=== PATIENT | male | born 1965 | race Caucasian/White ===

== ENCOUNTER 2019-12-15 07:36 | Day surgery (SDC) | payer OTHER, BC ==
[2019-12-05 17:59] VITALS: BMI 36.9
[2019-12-15] MEDS ORDERED: MIDAZOLAM HCL 2 MG/2 ML SINGLE DOSE VIAL ONE (12:11)
[2019-12-15] MEDS ORDERED: DEXAMETHASONE SOD PHOSPHATE/PF 10 MG/ML SDV ONE (12:11)
[2019-12-15] MEDS ORDERED: ROPIVACAINE HCL 0.5% 30ML VIAL ONE (12:11)
[2019-12-15] MEDS ORDERED: SUCCINYLCHOLINE CHLORIDE 200 MG/10 ML SYRINGE ONE (12:56)
[2019-12-15] MEDS ORDERED: PROPOFOL 20 ML ONE ×2 (12:56)
[2019-12-15] MEDS ORDERED: ceFAZolin SODIUM 1 GM VIAL ONE (13:05)
[2019-12-15] MEDS ORDERED: ONDANSETRON 4 MG/2 ML VIAL ONE (13:05)
[2019-12-15] MEDS ORDERED: DEXAMETHASONE SOD PHOSPHATE 4 MG/1 ML VIAL ONE (13:05)
[2019-12-15] MEDS ORDERED: ePHEDrine SULFATE 50 MG/1 ML AMPULE ONE (13:19)
[2019-12-15] MEDS ORDERED: PHENYLEPHRINE HCL 10 MG/1 ML SINGLE DOSE VIAL ONE (13:30)
[2019-12-15] MEDS ORDERED: TRANEXAMIC ACID 1000 MG/10 ML VIAL ONE (14:02)
[2019-12-15] MEDS ORDERED: BENZOIN/ALOE VERA/STORAX/TOLU 58 ML BOTTLE ONE (14:07)
[2019-12-15] MEDS ORDERED: PROMETHAZINE HCL 25 MG/1 ML VIAL IVPUSH PRN (15:03)
[2019-12-15] MEDS ORDERED: ONDANSETRON 4 MG/2 ML VIAL IVPUSH PRN (15:03)
[2019-12-15] MEDS ORDERED: oxyCODONE HCL 5 MG TABLET PO PRN ×2 (15:03)
--- NOTE | 2019-12-15 15:08 | PN ---
Progress Note (short form) - Note Progress Note: 54M s/p LEFT shoulder open Quyen procedure, & Neer Decompression POD #0. -Pain control: Vicodin, Duexis ordered to pharmacy. -Incentive spirometry. -No chemical DVT PPx. -LUE sling. -No LEFT shoulder ROM. -Daily LEFT elbow, wrist & hand ROM. -Keep dressing clean & dry. -f/u in [facility] [place] [facility] in 7-10 days; call for appointment; . Marvin Ortiz MD (Orthopaedic Surgery).
--- NOTE | 2019-12-15 15:17 | OP ---
Operative Note - Note: Operative Date: 12/15/19 Pre-Operative Diagnosis: Impingement syndrome left shoulder Operation: Left shoulder open. Quyen procedure. Neer decompression Post-Operative Diagnosis: Same as Pre-op Surgeon: Marvin Ortiz [employer]: Kavin Ortiz Anesthesiologist/BUSINESS SERVICES CLERK: Thanh Skelton Anesthesia: General Estimated Blood Loss (mls): 25 Fluid Volume Replaced (mls): 900 (Crystalloid) Operative Report Dictated: Yes
[2019-12-15] MEDS ORDERED: oxyCODONE HCL 5 MG TABLET ONE (17:05)
[2019-12-15 17:20] VITALS: PULSE 98
[2019-12-15 17:42] VITALS: BP 110/76; TEMP 97.8
[2019-12-15] MEDS ORDERED: ROSUVASTATIN CA 10 MG TABLET (FP) PO SCH (22:00)
[2019-12-15] MEDS ORDERED: TAMSULOSIN HCL 0.4 MG CAP PO SCH (22:00)
[2019-12-15] MEDS ORDERED: PATIENT'S OWN MEDICATION (NON-FORMULARY) (Diazepam [Diazepam] 10 MG) PO SCH (22:00)
[2019-12-15] MEDS ORDERED: CYCLOBENZAPRINE HCL 10 MG TABLET (FP) PO SCH (22:00)
[2019-12-15] MEDS ORDERED: diazePAM 5 MG TABLET PO SCH (22:00)
--- NOTE | 2019-12-16 07:06 | OP ---
DATE OF OPERATION: DATE OF DICTATION: 12/15/2019 SURGEON: Marvin Ortiz MD CONTROL PANEL BUILDER: Kavin Ortiz MD PREOPERATIVE DIAGNOSIS: Rotator cuff impingement syndrome with chronic rotator cuff tendinosis, failed conservative treatment. POSTOPERATIVE DIAGNOSIS: Rotator cuff impingement syndrome with chronic rotator cuff tendinosis, failed conservative treatment. OPERATION PERFORMED: 1. Excision arthroplasty clavicle (Quyen). (53250) 2. Neer decompression: Acromioplasty & transection of coracoacrominal ligament. (57332) ANESTHESIA: General with scalene block. ANTIBIOTICS GIVEN: 2 g Ancef, 1 g vancomycin preop. OPERATION DETAILS: Patient was correctly identified, brought into the operating room. Left upper extremity prepped, draped in a routine manner with Betadine scrub solution, wiped off with alcohol, DuraPrep applied. A free drape applied. The shoulder and axilla sealed completely as a separate field. The patient was placed in a beach chair position. The incision was made from the tip of the acromion to the tip of the coracoid. The dissection was taken through the skin and subcutaneous tissue. The deltoid identified. A Hohmann retractor was placed and a plane developed between the subcutaneous fat and the clavicle. Just placed behind the clavicle distally as was an anterior Hohmann retractor placed also to protect the distal 1 cm of the clavicle, that is, the undersurface. A beveled incision was made with an oscillating saw to incise the entire lateral 1 cm of clavicle. The soft tissues were dissected off the bone. 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 Once this had been performed, the deltoid was opened about 1 cm in lines of the fibers of the deltoid. The ac coracoacrominal ligament was dissected off the deltoid using a peanut. [employer] retractors were utilized to hold the muscle away from the coracoacromial ligament. This was transected using a 15 blade knife the entire ligament being transected, and this extended all the way up into the shoulder. Once this had been performed, with fingertip palpation, the undersurface of the acromion and the subacromial space was explored. This was completely freed of adhesions. A large acromioplasty was performed. A Hohmann retractor was placed in the undersurface of the acromion leaving the humeral head down. A rake retractor was used to hold the soft tissue of the remaining acromioclavicular joint out of harm's way. This gave the surface of the joint readily visible. An oscillating saw was utilized to incise almost half of this extending all the way to the back of the acromion, thus performing a liberal acromioplasty. The anterior tip of the acromion was also reached by placing a Hohmann under the deltoid getting to this area, which was difficult, but at the end this was resected appropriately to remove the sharp edge of bone that was digging into the acromioclavicular joint particularly on extension. This was readily palpated manually. The wounds were thoroughly lavaged. The bursa of the supraspinatus was identified. It was open dissected off the soft tissue elements. The rotator cuff was inspected. No tears were noted. The wounds were thoroughly lavaged. The closure was as follows: Deltoid to remaining acromioclavicular joint tissues with No. 1 Vicryl, Seroquel 1 Vicryl, skin 3-0 Monocryl with Steri-Strips. No drains. The sling was applied. MD TOMMY Maki/[id number] MTDD
[2019-12-16] MEDS ORDERED: PATIENT'S OWN MEDICATION (NON-FORMULARY) (Losartan Potassium [Losartan Potassium] 100 MG) PO SCH (10:00)
[2019-12-16] MEDS ORDERED: LOSARTAN POTASSIUM 50 MG TABLET (FP) PO SCH (10:00)
[2019-12-16] MEDS ORDERED: PANTOPRAZOLE 20 MG TABLET PO SCH (10:00)
[2019-12-16] MEDS ORDERED: PATIENT'S OWN MEDICATION (NON-FORMULARY) (Omeprazole Magnesium [Prilosec Otc] 20 MG) PO SCH (10:00)
[2019-12-16] MEDS ORDERED: FLUTICASONE PROP 0.05% 16 GM NASAL SPRAY NS SCH (10:00)
[2019-12-16] MEDS ORDERED: amLODIPine BESYLATE 5 MG TABLET (FP) PO SCH (10:00)
[2019-12-16] MEDS ORDERED: ATENOLOL 25 MG TABLET (FP) PO SCH (10:00)
== END 2019-12-15 17:43 | disposition home or self-care (01) ==
LOC: FASU 07:36
PROVIDERS: ATTEND Orthopaedic Surgery Orthopaedic Surgery of the Spine
PROC: 0MN20ZZ Release Left Shoulder Bursa and Ligament, Open Approach (ICD-10-PCS; 2019-12-15)
PROC: 0RBH0ZZ Excision of Left Acromioclavicular Joint, Open Approach (ICD-10-PCS; 2019-12-15)
PROC: 0PBB0ZZ Excision of Left Clavicle, Open Approach (ICD-10-PCS; principal; 2019-12-15 13:33)
DX: M75.42 Impingement syndrome of left shoulder (principal); M75.102 Unspecified rotator cuff tear or rupture of left shoulder, not specified as traumatic
CPT/HCPCS: 94760

== ENCOUNTER 2020-05-30 22:31 | Emergency (ER) | payer OTHER, BC ==
--- NOTE | 2020-05-30 22:47 | PDOC ---
History of Present Illness - General Chief Complaint: Injury Stated Complaint: LOWER BACK/INJURY Time Seen by Provider: 05/30/20 22:46 History Source: Patient Exam Limitations: No Limitations Past History - Travel History Traveled outside of the country in the last 30 days: No Close contact w/someone who was outside of country & ill: No - Medical History Allergies/Adverse Reactions: Allergies Allergy/AdvReac Type Severity Reaction Status Date / Time latex Allergy Rash Verified 12/15/19 08:09 povidone-iodine Allergy Itching Verified 12/15/19 08:09 [From Betadine] soap [From Betadine] Allergy Itching Verified 12/15/19 08:09 seafood Allergy Rash Uncoded 12/15/19 08:09 Home Medications: Ambulatory Orders Amlodipine Besylate 5 mg PO DAILY 12/05/19 Atenolol [Tenormin] 25 mg PO DAILY 12/05/19 Cyclobenzaprine HCl 10 mg PO HS 12/05/19 Diazepam 10 mg PO HS 12/05/19 Fluticasone Prop 0.05% Nasal [Flonase -] 1 - 2 spray NS DAILY 12/05/19 Losartan Potassium 100 mg PO DAILY 12/05/19 Omeprazole Magnesium [Prilosec Otc] 20 mg PO DAILY 12/05/19 Rosuvastatin [Crestor -] 10 mg PO DAILY 12/05/19 Tamsulosin HCl [Flomax] 0.8 mg PO HS 12/05/19 traMADol HCL [Ultram -] 50 mg PO BID 12/05/19 Cyclobenzaprine HCl [Flexeril -] 10 mg PO HS #10 tablet 05/30/20 Methylprednisolone [Medrol Dose Jase] 4 mg PO ASDIR #21 tablet 05/30/20 Anemia: No Asthma: No Cancer: No Cardiac Disorders: No CVA: No COPD: No CHF: No Dementia: No Diabetes: No GI Disorders: Yes (acid reflux) Disorders: Yes (enlarged prostate) HTN: Yes Hypercholesterolemia: Yes Liver Disease: Yes (FATTY LIVER) Seizures: No Thyroid Disease: No - Surgical History Abdominal Surgery: No Appendectomy: No Cardiac Surgery: No Cholecystectomy: No Lung Surgery: No Neurologic Surgery: Yes (spinal fusion C-3-4-5, L1-L5) Orthopedic Surgery: No - Psycho-Social/Smoking History Smoking History: Never smoked Have you smoked in the past 12 months: No - Substance Abuse Hx (Audit-C & DAST Scrn) How often the patient has a drink containing alcohol: Never Score: In Men: 4 or > Positive; In Women: 3 or > Positive: 0 Screen Result (Pos requires Nsg. Audit-10AR): Negative In the last yr the pt used illegal drug/Rx for NonMed reason: No Score: Yes response is considered Positive: 0 Screen Result (Positive result requires Nsg. DAST-10): Negative Review of Systems - Review of Systems Able to Perform ROS?: Yes Comments:: 05/30/20 23:48 CONSTITUTIONAL: Absent: fever, chills, diaphoresis, generalized weakness, malaise, loss of appetite GASTROINTESTINAL: Absent: abdominal pain, abdominal distension, nausea, vomiting, diarrhea, constipation, melena, hematochezia GENITOURINARY: Absent: dysuria, frequency, urgency, hesitancy, hematuria, flank pain, genital pain MUSCULOSKELETAL: Present: Neck pain, low back pain Absent: arthralgia, joint swelling SKIN: Absent: rash, itching, pallor NEUROLOGIC: Absent: headache, focal weakness or paresthesias, dizziness, unsteady gait, seizure, mental status changes, bladder or bowel incontinence PSYCHIATRIC: Absent: anxiety, depression, suicidal or homicidal ideation, hallucinations. Is the patient limited [place] proficient: No *Physical Exam - Vital Signs Last Vital Signs Temp Pulse Resp BP Pulse Ox 98.6 F 98 H 19 119/96 97 05/30/20 22:42 05/30/20 22:42 05/30/20 22:42 05/30/20 22:42 05/30/20 22:42 - Physical Exam 05/30/20 23:48 GENERAL: Well developed, well nourished. Awake and alert. No acute distress. NECK: Supple. Full ROM. No lymphadenopathy. MUSCULOSKELETAL Tenderness to palpation of the mid low back across the midline, bilateral paraspinous muscles L1-L5. Tenderness palpation of the fourth through C7 with tenderness palpation of the paraspinous muscles as well. Negative straight leg raise test bilaterally. Normal range of motion at all joints. No bony def ormities or tenderness. No CVA tenderness. EXTREMITIES: No cyanosis. No clubbing. No edema. No calf tenderness. SKIN: Warm and dry. Normal capillary refill. No rashes. No jaundice. NEUROLOGICAL: Alert, awake, appropriate. Cranial nerves 2-12 intact. No deficits to light touch and temperature in face, upper extremities and lower extremities. No motor deficits in the in face, upper extremities and lower extremities. Normoreflexic in the upper and lower extremities. Normal speech. Toes are down-going bilaterally. Gait is normal without ataxia. PSYCHIATRIC: Cooperative. Good eye contact. Appropriate mood and affect. Medical Decision Making - Medical Decision Making 05/30/20 23:50 Patient is a 54-year-old male with past medical history of spinal fusion, cervical fusion, presents to the ER today for neck and back pain status post fall just prior to arrival. He states that he was walking his dog when a neighbor's dog ran past him and knocked him over. He states he landed flat on his back. He states that after falling he was unable to get up without assistance. He states that he feels very sore in the back and that his hardware is "out of place "he has not taken any medication for pain. Denies LOC, lightheadedness numbness and tingling and weakness to the lower extremities and upper extremities, saddle anesthesia and bladder bowel incontinence. A/P: Low back pain -Pt with TTP of the B/L paraspinous muscles, L1-L5, with palpable knot consistent with muscle spasm. (+) midline tenderness, (-) straight leg raise testing -Nofever. No saddle anesthesia or bladder/bowel incontinence. No CVA tenderness. -Pt is neurologically intact on exam with no focal findings. -X-rays of the back and neck show hardware intact, no acute fractures identified. Straightening of the paraspinous muscles. -Toradol , Tylenol, Flexeril, lidocaine patch given with relief of symptoms -DC home. Ortho follow up given for if symptoms do not resolve. -I discussed the physical exam findings, ancillary test results and final diagnoses with the patient. I answered all of the patient's questions. The patient was satisfied with the care received and felt comfortable with the discharge plan and treatment plan. The Patient agrees to follow up with the primary care physician/specialist within 24-72 hours. Return precautions were given. Discharge - Discharge Information Problems reviewed: Yes Clinical Impression/Diagnosis: Low back pain Qualifiers: Chronicity: acute Back pain laterality: bilateral Sciatica presence: with sciatica Sciatica laterality: sciatica of left side Qualified Code(s): M54.42 - Lumbago with sciatica, left side Fall Qualifiers: Encounter type: initial encounter Qualified Code(s): W19.XXXA - Unspecified fall, initial encounter Condition: Stable Disposition: HOME - Admission No - Additional Discharge Information Prescriptions: Cyclobenzaprine HCl [Flexeril -] 10 mg PO HS #10 tablet Methylprednisolone [Medrol Dose Jase] 4 mg PO ASDIR #21 tablet - Follow up/Referral - Patient Discharge Instructions Patient Printed Discharge Instructions: DI for Low Back Pain Additional Instructions: You have low back pain due to a muscle spasm after falling. Please take the medrol dose pack as directed. This will help with the inflammation and leg pain. You were also prescribed Flexeril. Please take this medication every 8 hours for the first day. Then take the medication before you go to bed. Do not drive after taking this medication as it may make you sleepy. You may use warm compresses on your back to help with her symptoms. Please follow-up with your primary care doctor. If your symptoms do not resolve in 3-5 days, follow-up with your spine surgeon for further management of your symptoms. Return to the emergency department if you have worsening back pain, bladder or bowel incontinence, numbness and tingling in her legs, changes in the way you walk, or any new or worsening symptoms. - Post Discharge Activity
[2020-05-30 22:50] VITALS: BP 119/96; PULSE 98; TEMP 98.6; BMI 36.9
--- NOTE | 2020-05-30 22:53 | PDOC ---
History of Present Illness - General Chief Complaint: Injury Stated Complaint: LOWER BACK/INJURY Past History - Medical History Allergies/Adverse Reactions: Allergies Allergy/AdvReac Type Severity Reaction Status Date / Time latex Allergy Rash Verified 12/15/19 08:09 povidone-iodine Allergy Itching Verified 12/15/19 08:09 [From Betadine] soap [From Betadine] Allergy Itching Verified 12/15/19 08:09 seafood Allergy Rash Uncoded 12/15/19 08:09 Home Medications: Ambulatory Orders Amlodipine Besylate 5 mg PO DAILY 12/05/19 Atenolol [Tenormin] 25 mg PO DAILY 12/05/19 Cyclobenzaprine HCl 10 mg PO HS 12/05/19 Diazepam 10 mg PO HS 12/05/19 Fluticasone Prop 0.05% Nasal [Flonase -] 1 - 2 spray NS DAILY 12/05/19 Losartan Potassium 100 mg PO DAILY 12/05/19 Omeprazole Magnesium [Prilosec Otc] 20 mg PO DAILY 12/05/19 Rosuvastatin [Crestor -] 10 mg PO DAILY 12/05/19 Tamsulosin HCl [Flomax] 0.8 mg PO HS 12/05/19 traMADol HCL [Ultram -] 50 mg PO BID 12/05/19 Anemia: No Asthma: No Cancer: No Cardiac Disorders: No CVA: No COPD: No CHF: No Dementia: No Diabetes: No GI Disorders: Yes (acid reflux) Disorders: Yes (enlarged prostate) HTN: Yes Hypercholesterolemia: Yes Liver Disease: Yes (FATTY LIVER) Seizures: No Thyroid Disease: No - Surgical History Abdominal Surgery: No Appendectomy: No Cardiac Surgery: No Cholecystectomy: No Lung Surgery: No Neurologic Surgery: Yes (spinal fusion C-3-4-5, L1-L5) Orthopedic Surgery: No - Psycho-Social/Smoking History Smoking History: Never smoked Have you smoked in the past 12 months: No - Substance Abuse Hx (Audit-C & DAST Scrn) How often the patient has a drink containing alcohol: Never Score: In Men: 4 or > Positive; In Women: 3 or > Positive: 0 Screen Result (Pos requires Nsg. Audit-10AR): Negative In the last yr the pt used illegal drug/Rx for NonMed reason: No Score: Yes response is considered Positive: 0 Screen Result (Positive result requires Nsg. DAST-10): Negative *Physical Exam - Vital Signs Last Vital Signs Temp Pulse Resp BP Pulse Ox 98.6 F 98 H 19 119/96 97 05/30/20 22:42 05/30/20 22:42 05/30/20 22:42 05/30/20 22:42 05/30/20 22:42
[2020-05-30] MEDS ORDERED: LIDOCAINE 5% TOPICAL PATCH ONE (23:42)
[2020-05-30] MEDS ORDERED: ACETAMINOPHEN 325 MG TABLET (FP) ONE (23:42)
[2020-05-30] MEDS ORDERED: KETOROLAC TROMETHAMINE 30 MG/1 ML VIAL ONE (23:42)
[2020-05-30] MEDS ORDERED: CYCLOBENZAPRINE HCL 10 MG TABLET (FP) ONE (23:42)
== END 2020-05-31 00:21 | disposition home or self-care (01) ==
LOC: JER 22:31
DX: M54.42 Lumbago with sciatica, left side (principal); W19.XXXA Unspecified fall, initial encounter
CPT/HCPCS: 72050-TC-FY; 72100-TC-FY; 99284-25